=== PATIENT | female | born 1940 | race Caucasian/White ===

== ENCOUNTER 2017-03-29 21:38 | Inpatient (IN) | payer OTHER, MEDICARE ==
[~2017-03-29] VITALS: Ht 167.6 cm; Wt 86.4 kg
[~2017-03-29 21:38] MED LIST: ADULT LOW DOSE81 M1 PO; CALCIUM + VITA1 EACH PO; CENTRUM COMPLE1 EACH PO; DIOVAN160 MG PO; FOLIC ACID1 MG PO; FOSAMAX70 MG PO; NEURONTIN300 MG PO; NORVASC5 MG PO; PRAVACHOL40 MG PO; STUDY DRUG; TYLENOL EXTRA500 MG PO; ULTRAM50 MG PO; VITAMIN D1000 UNIT PO
[2017-03-30] MEDS ORDERED: COZAAR100 MG PO (12:14)
[2017-03-30] MEDS ORDERED: OMEPRAZOLE40 M1 PO (12:14)
[2017-03-30] MEDS ORDERED: FEROSUL325 MG PO (12:16)
[2017-03-30 12:22] VITALS: BP 153/72
[2017-03-30 18:46] VITALS: BP 146/67
[2017-03-30 19:52] VITALS: BP 147/70
[2017-03-30 23:26] VITALS: BP 141/63
[2017-03-31 04:35] VITALS: BP 130/63
[2017-03-31 07:26] LABS: HEMATOCRIT 33.6 % (36.0-46.0); MCV 97.4 FL (83-99)
[2017-03-31 07:51] LABS: ANION GAP 6 MEQ/L (2-14); CHLORIDE 101 MEQ/L (99-109); POTASSIUM 3.9 MEQ/L (3.7-5.4); SAMPLE HEMOLYSIS CHECK 0; SAMPLE ICTERIC CHECK 0; SAMPLE LIPEMIA CHECK 0; SODIUM 137 MEQ/L (136-147)
[2017-03-31 07:56] LABS: GFR ESTIMATE (CALCULATED) > 59 mL/min/; GLUCOSE 115 mg/dL (70-99); UREA NITROGEN (BUN) 6 mg/dL (9-23)
[2017-03-31 08:05] VITALS: BP 157/70
[2017-03-31] MEDS ORDERED: BENADRYL25 MG PO (09:01)
[2017-03-31] MEDS ORDERED: BISACODYL5 MG PO (09:03)
[2017-03-31] MEDS ORDERED: CELECOXIB200 MG PO (09:06)
[2017-03-31] MEDS ORDERED: ELIQUIS2.5 MG PO (09:06)
[2017-03-31 15:28] VITALS: BP 120/58
[2017-03-31 23:11] VITALS: BP 126/58
[2017-04-01 06:55] LABS: HEMATOCRIT 28.3 % (36.0-46.0); MCV 97.9 FL (83-99)
[2017-04-01] MEDS ORDERED: OXYCODONE HCL5 MG PO (09:10)
[2017-04-01 09:40] VITALS: BP 133/60
[2017-04-01] MEDS ORDERED: NORCO 5/3251 TABLET PO (11:14)
[2017-04-01 11:44] VITALS: BP 115/58
== END 2017-04-01 15:46 | DRG 470 ==
LOC: ENRESERV 21:38 → 2SOUTH 03-30 11:21 → ENRESERV 03-30 14:20 → 3EAST 03-30 18:03
PROVIDERS: Orthopaedic Surgery
PROC: 0SRD0J9 Replacement of Left Knee Joint with Synthetic Substitute, Cemented, Open Approach (ICD-10-PCS; principal; 2017-03-30)
DX: M17.12 Unilateral primary osteoarthritis, left knee (principal); I10 Essential (primary) hypertension; E78.5 Hyperlipidemia, unspecified; J45.909 Unspecified asthma, uncomplicated; K21.9 Gastro-esophageal reflux disease without esophagitis; Z96.641 Presence of right artificial hip joint; Z87.891 Personal history of nicotine dependence
CPT/HCPCS: 80048; 85014; 85018; 97530 GO; C1713; J0131; J0690; J1100; J1885; J2250; J2405; J2795; J7050